=== PATIENT | male | born 1985 | race Caucasian/White ===

== ENCOUNTER 2017-09-11 19:37 | Emergency (ER) | payer MEDICAID, OTHER ==
[~2017-09-11] VITALS: Ht 167.6 cm; Wt 70.8 kg
[2017-09-11 19:44] VITALS: BP 139/88
== END 2017-09-11 21:10 | disposition home or self-care (01) ==
LOC: ER 19:39
DX: G43.909 Migraine, unspecified, not intractable, without status migrainosus (principal)
CPT/HCPCS: 99283; A4606; Z7610